=== PATIENT | female | born 1985 | race Caucasian/White ===

== ENCOUNTER 2022-11-11 13:38 | Emergency (ER) | payer OTHER | END 2022-11-11 14:17 | disposition home or self-care (01) | LOC: JP.ED 13:38 | DX: T20.17XA Burn of first degree of neck, initial encounter (principal); Z88.5 Allergy status to narcotic agent; Z86.16 Personal history of COVID-19; X16.XXXA Contact with hot heating appliances, radiators and pipes, initial encounter | CPT/HCPCS: 99283 ==

== ENCOUNTER 2023-08-31 09:10 | Emergency (ER) | payer BC ==
[2023-08-31] MEDS: Sodium Chloride 0.9% 10 ML Syringe FLUSH PRN ×2 (10:09→10:42)
[2023-08-31] MEDS: Ondansetron 4 MG/2 ML SDV IVPUSH ONE (10:15)
[2023-08-31] MEDS: Meclizine 25 MG Tab PO ONE (10:15)
[2023-08-31 10:18] LABS: BASOPHILS ABSOLUTE AUTO 0.03 K/uL (0.00-0.10); BASOPHILS PERCENT AUTO 0.4 % (0.1-1.3); EOSINOPHILS ABSOLUTE AUTO 0.14 K/uL (0.00-0.40); HEMATOCRIT 43.3 % (34.3-46.0); HEMOGLOBIN 14.6 g/dL (11.2-15.5); IMMATURE GRAN ABSOLUTE AUTO 0.04 K/uL (0.00-0.23); IMMATURE GRAN PERCENT AUTO 0.6 % (0.0-0.7); LYMPHOCYTES ABSOLUTE AUTO 2.09 K/uL (0.8-3.3); LYMPHOCYTES PERCENT AUTO 29.4 % (11.4-47.7); MEAN CORPUSCULAR HEMOGLOBIN 29.5 pg (31.6-35.5); MEAN CORPUSCULAR HGB CONC 33.7 g/dL (31.6-35.5); MEAN CORPUSCULAR VOLUME 87.5 fL (81.4-99.0); MONOCYTES ABSOLUTE AUTO 0.56 K/uL (0.20-0.90); MONOCYTES PERCENT AUTO 7.9 % (3.3-12.6); NEUTROPHILS ABSOLUTE AUTO 4.26 K/uL (1.0-7.6); NEUTROPHILS PERCENT AUTO 59.7 % (40.0-78.1); PLATELET COUNT,PLT 211 K/uL (130-375); RED BLOOD CELL COUNT 4.95 M/uL (3.77-5.24); WHITE BLOOD CELL COUNT,WBC 7.1 K/uL (3.2-11.0)
[2023-08-31 10:28] LABS: APPEARANCE,URINE CLEAR (CLEAR); BILIRUBIN,URINE NEGATIVE (NEGATIVE); COLOR,URINE YELLOW (YELLOW); GLUCOSE,URINE NEGATIVE (NEGATIVE); KETONES,URINE NEGATIVE (NEGATIVE); LEUKOCYTE ESTERASE,URINE NEGATIVE (NEGATIVE); NITRITE,URINE NEGATIVE (NEGATIVE); OCCULT BLOOD,URINE SMALL (NEGATIVE); PROTEIN,URINE NEGATIVE (NEGATIVE); UROBILINOGEN,URINE 0.2 EU/dL (0.2-1.0)
[2023-08-31] MEDS: Ketorolac 15 MG/ML SDV IVPUSH ONE (10:29)
[2023-08-31 10:37] LABS: AMORPHOUS SEDIMENT,URINE RARE; BACTERIA,URINE RARE; EPITHELIAL CELLS,URINE RARE; MUCUS,URINE NOT SEEN; WBC,URINE NOT SEEN (0-5)
[2023-08-31] MEDS: Iopamidol 612 MG/ML 100 ML Bottle IV PRN (10:42)
[2023-08-31] MEDS: Sodium Chloride 0.9% 50 ML IV SCH (10:43)
[2023-08-31 10:51] LABS: A/G RATIO 1.1 (1.2-2.2); ALANINE AMINOTRANSFERASE,ALT 18 U/L (12-78); ALBUMIN 3.9 g/dL (3.4-5.0); ALKALINE PHOSPHATASE 83 U/L (46-116); ANION GAP 6.6 mmol/L (5.0-14.0); ASPARTATE AMNIOTRANSFERASE,AST 13 U/L (15-37); BILIRUBIN TOTAL 0.4 mg/dL (0.2-1.0); BLOOD UREA NITROGEN,BUN 13 mg/dL (7-18); CALCIUM 9.1 mg/dL (8.5-10.1); CARBON DIOXIDE,CO2 30 mmol/L (21-32); CHLORIDE,CL 103 mmol/L (100-108); CREATININE 0.8 mg/dL (0.6-1.0); ESTIMATED GFR 95 mL/min (>60); GLUCOSE RANDOM 100 mg/dL (74-106); POTASSIUM,K 4.3 mmol/L (3.6-5.2); PROTEIN TOTAL,TP 7.3 g/dL (6.4-8.2); SODIUM,NA 140 mmol/L (140-148)
[2023-08-31 10:52] LABS: TSH ULTRASENSITIVE 1.366 uIU/mL (0.358-3.740)
[2023-08-31 11:12] LABS: T4 FREE 0.79 ng/dL (0.76-1.46)
== END 2023-08-31 12:36 | disposition home or self-care (01) ==
LOC: JP.ED 09:10
DX: R10.31 Right lower quadrant pain (principal); R03.0 Elevated blood-pressure reading, without diagnosis of hypertension; R31.29 Other microscopic hematuria; R42 Dizziness and giddiness; J45.909 Unspecified asthma, uncomplicated; Z90.49 Acquired absence of other specified parts of digestive tract; Z90.710 Acquired absence of both cervix and uterus; Z86.16 Personal history of COVID-19; Z79.899 Other long term (current) drug therapy; Z88.5 Allergy status to narcotic agent
CPT/HCPCS: 36415; 74177; 80053; 81001; 83690; 84439; 84443; 85025; 93005; 96374; 96375; 99284; A9270; J1885; J2405; J3490; Q9967